=== PATIENT | male | born 1995 | race Two or more races ===

== ENCOUNTER 2025-01-25 10:53 | Emergency (ER) | payer BC ==
[~2025-01-25] VITALS: Ht 188 cm; Wt 111.1 kg
[2025-01-25 11:02] VITALS: BP 143/93; TEMP 98
[2025-01-25] MEDS ORDERED: TDAP [DIPH/PERTUSSIS/TET] 0.5 ML VIAL IM ONE (11:29)
[2025-01-25] MEDS: TDAP [DIPH/PERTUSSIS/TET] 0.5 ML VIAL IM ONE (11:33)
[2025-01-25 11:39] VITALS: O2SAT 99
== END 2025-01-25 11:40 | disposition home or self-care (01) ==
LOC: ER 11:00
DX: S60.512A Abrasion of left hand, initial encounter (principal); Z88.2 Allergy status to sulfonamides; W50.4XXA Accidental scratch by another person, initial encounter; Y93.89 Activity, other specified; Y92.89 Other specified places as the place of occurrence of the external cause; Y99.8 Other external cause status
CPT/HCPCS: 90715